=== PATIENT | male | born 1960 | race Caucasian/White ===

== ENCOUNTER 2025-09-08 08:23 | Emergency (ER) | payer OTHER ==
[2025-09-08 09:25] LABS: #Basophils 0.04 10x3/uL (0.0-0.2); #Eosinophils 0.22 10x3/uL (0.0-0.5); #Monocytes 0.83 10x3/uL (0.0-1.1); #Neutrophils 6.12 10x3/uL (1.5-8.4); %Basophils 0.4 % (0.0-2.0); %Eosinophils 2.4 % (0.0-6.0); %Lymphocytes 21.0 % (18.0-47.0); %Monocytes 9.1 % (0.0-10.0); %Neutrophils 66.8 % (40.0-75.0); Hematocrit 39.2 % (38.8-50.0); Hemoglobin 13.0 g/dL (13.5-17.5); Mean Corpuscular Hemoglobin 29.8 pg (27.0-33.0); Mean Corpuscular Volume 89.9 fL (81.2-95.1); Platelet Count 214 10x3/uL (150-450); Red Blood Cell (RBC) Count 4.36 10x6/uL (4.32-5.72); White Blood Cell (WBC) Count 9.17 10x3/uL (3.5-10.5)
[2025-09-08 09:41] LABS: ALT (SGPT) 14 U/L (Less than 45); AST (SGOT) 17 U/L (11-34); Albumin 3.8 g/dL (3.1-4.5); Alkaline Phosphatase 70 U/L (40-110); Anion Gap 12 mmol/L (10-20); BUN (Urea Nitrogen) 18 mg/dL (8.4-25.7); Bilirubin, Total 0.9 mg/dL (0.3-1.2); Calc. Creatinine Clearance 0 mL/min (70-130); Calcium 9.1 mg/dL (7.8-10.44); Carbon Dioxide 26 mmol/L (23-31); Chloride 105 mmol/L (98-107); Globulin 3.6 g/dL (2.4-3.5); Glucose 156 mg/dL (80-115); Potassium 4.2 mmol/L (3.5-5.1); Sodium 139 mmol/L (136-145)
[2025-09-08 09:47] LABS: Troponin I 0.142 ng/mL (< 0.028)
[2025-09-08] MEDS ORDERED: Heparin 10,000 UNITS/ 10 ML VIAL ONE (10:09)
[2025-09-08 10:18] LABS: INR-International Normal Ratio 1.0; PTT 26.1 sec (22.0-33.0); Prothrombin Time 10.9 sec (9.5-12.1)
== END 2025-09-08 14:28 | disposition short-term general hospital (02) ==
LOC: EEVIPCON 08:23 → CSHERS 08:23
DX: I20.0 Unstable angina (principal); I10 Essential (primary) hypertension; I25.2 Old myocardial infarction; E11.9 Type 2 diabetes mellitus without complications; Z79.899 Other long term (current) drug therapy; Z79.82 Long term (current) use of aspirin; Z79.4 Long term (current) use of insulin
CPT/HCPCS: 36415; 71045; 80053; 84484; 85025; 85610; 85730; 93005; 94760; 96374; 96375; J1644